=== PATIENT | male | born 1975 | race African-American/Black ===

== ENCOUNTER → 2016-05-28 | Emergency (ER) | payer BC, OTHER ==
[~2016-05-28] VITALS: Ht 198.1 cm; Wt 142.9 kg
[~2016-05-28] MED LIST: LOSARTAN POTASS25 MG ORAL; METOPROLOL5 MG/5 M1 IV; OCUFLOX5 ML OPHTHALM
[2016-05-28 17:05] VITALS: BP 91/62
[2016-05-28 17:27] VITALS: BP 91/62
--- NOTE | 2016-05-28 17:54 | Emergency Room Report ---
History of Present Illness General Chief Complaint: Eye Problems Source: Patient Present Illness HPI The patient is a 40-year-old male presenting for left eye discharge and redness which began 2 days prior. The patient states that he woke with his eye crusted shut. The patient describes the discharge as white to yellow and thick. The patient does admit to mild itchiness as well. The patient denies any pain and denies photophobia, pain, headache, dizziness, blurred vision, N, V, F. The patient denies any sick contacts Allergies: Coded Allergies: No Known Allergies (Unverified , 05/28/16) Patient History Past Medical History: see triage record Pertinent Family History: none Reviewed Nursing Documentation: PMH: Agreed, PSxH: Agreed Nursing Documentation-PMH Past Medical History: No History, Except For Hx Hypertension: Yes Review of Systems All Other Systems: negative except mentioned in HPI Physical Exam Vital Signs Date Time Temp Pulse Resp B/P Pulse Ox O2 Delivery O2 Flow Rate FiO2 05/28/16 16:58 98.2 68 20 91/62 100 Room Air Sp02 EP Interpretation: reviewed, normal General Appearance: no apparent distress, alert, GCS 15, non-toxic Head: normocephalic, atraumatic Eyes: right eye normal inspection, left eye Scleral Injection, left eye other - thick white DC, bilateral eye EOMI, bilateral eye PERRL ENT: hearing grossly normal, normal pharynx, no angioedema, normal voice Neck: full range of motion, supple/symm/no masses Respiratory: chest non-tender, lungs clear, normal breath sounds, speaking full sentences Cardiovascular #1: regular rate, rhythm, no edema Gastrointestinal: non-distended, no guarding Neurologic: alert, oriented x3, responsive, motor strength/tone normal, sensory intact, normal gait, speech normal Psychiatric: judgement/insight normal, memory normal, mood/affect normal, no suicidal/homicidal ideation Skin: normal color, no rash, warm/dry, well hydrated Lymphatic: no adenopathy Medical Decision Making PA Attestation Dr. Vasquez is my supervising physician. Patient management was discussed with my supervising physician Diagnostic Impression: Primary Impression: Bacterial conjunctivitis of left eye ER Course The patient is a 40-year-old male presenting for left eye discharge and redness which began 2 days prior. Differential diagnoses considered but not limited to allergic conjunctivitis, bacterial conjunctivitis, viral conjunctivitis, blepharitis, hordeolum PE: vitals WNL. NAD L eye: injection. + Thick white DC. PERRL. EOMI. The patient will be discharged home with a prescription for ofloxacin and will FU with PMD Last Vital Signs Date Time Temp Pulse Resp B/P Pulse Ox O2 Delivery O2 Flow Rate FiO2 05/28/16 17:27 98.2 68 20 91/62 100 Room Air Status: improved Disposition: HOME, SELF-CARE Condition: Improved Scripts Ofloxacin (OCUFLOX) 5 Ml Drops 1 DRP OPHTHALM Q4HR for 7 Days, ML Prov: LEONARD RIOS 05/28/16 Referrals: DON SORENSON ,REFERRING (PCP) Patient Instructions: Bacterial Conjunctivitis Additional Instructions: I discussed my findings with the patient. All questions and concerns have been answered. Treatment and medication compliance have been addressed. I advised the patient that they need to follow up with PMD in 3-5 days. Return to ED if symptoms worsen, new symptoms arise, or if needed for any reason. Patient verbalized understanding of discharge instructions. LEONARD RIOS May 28, 2016 17:54
== END | disposition home or self-care (01) ==
LOC: EMR 17:15
DX: H10.9 Unspecified conjunctivitis (principal); I10 Essential (primary) hypertension
CPT/HCPCS: 99282

== ENCOUNTER 2017-01-24 16:58 | Emergency (ER) | payer OTHER ==
[~2017-01-24] VITALS: Ht 198.1 cm; Wt 145.1 kg
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
[2017-01-24 17:58] VITALS: BP 167/118
[2017-01-24] MEDS ORDERED: ROBAXIN-750750 MG PO (18:05)
[2017-01-24] MEDS ORDERED: IBUPROFEN600 MG ORAL (18:05)
[2017-01-24 18:12] VITALS: BP 167/118
--- NOTE | 2017-01-25 09:45 | Diagnostic Imaging Report ---
Indication: PAIN Technique: 2 views of the left tibia and fibula Comparison: none Findings: No acute fractures. No dislocations. No radiopaque foreign body Impression: Negative
--- NOTE | 2017-01-25 09:46 | Diagnostic Imaging Report ---
Indication: PAIN Technique: 3 views of the right knee Comparison: None Findings:No acute fractures. No dislocations. There are minimal degenerative changes. 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
== END 2017-01-24 18:15 | disposition home or self-care (01) ==
LOC: EMR 17:31
DX: S80.12XA Contusion of left lower leg, initial encounter (principal); S80.02XA Contusion of left knee, initial encounter; S00.03XA Contusion of scalp, initial encounter; S80.01XA Contusion of right knee, initial encounter; M54.2 Cervicalgia; M79.606 Pain in leg, unspecified; V49.9XXA Car occupant (driver) (passenger) injured in unspecified traffic accident, initial encounter; Y93.9 Activity, unspecified; Y99.9 Unspecified external cause status
CPT/HCPCS: 99284

== ENCOUNTER 2017-03-25 22:03 | Emergency (ER) | payer OTHER ==
[~2017-03-25] VITALS: Ht 198.1 cm; Wt 142.9 kg
[~2017-03-25 22:03] MED LIST changes: +IBUPROFEN600 MG ORAL; +ROBAXIN-750750 MG PO
[2017-03-25] MEDS ORDERED: AUGMENTIN 875-1 EAC1 ORAL (22:29)
[2017-03-25] MEDS ORDERED: ALBUTEROL SULF8.5 GM INH (22:29)
[2017-03-25 22:36] VITALS: BP 164/113
[2017-03-25 22:37] VITALS: BP 164/113
--- NOTE | 2017-03-25 23:37 | Emergency Room Report ---
History of Present Illness General Chief Complaint: Flu Like Symptoms Source: Patient Present Illness HPI Patient presents with complaints of sore throat Cough He reports that he has used several cough syrup without significant improvement Denies any headache or visual changes Patient also has a nasal congestion Symptoms ongoing for the past 2 weeks denies any vomiting or diarrhea denies any rash denies any neck pain or photophobia denies any recent travel sore throat is 4/ 10 worse with swallowing Allergies: Coded Allergies: No Known Allergies (Unverified , 05/28/16) Patient History Past Medical History: see triage record Pertinent Family History: none Reviewed Nursing Documentation: PMH: Agreed, PSxH: Agreed Nursing Documentation-PMH Past Medical History: No History, Except For Hx Hypertension: Yes Review of Systems All Other Systems: negative except mentioned in HPI Physical Exam Vital Signs Date Time Temp Pulse Resp B/P (MAP) Pulse Ox O2 Delivery O2 Flow Rate FiO2 03/25/17 22:10 98.2 88 18 202/139 98 Room Air Sp02 EP Interpretation: reviewed, normal General Appearance: well appearing, no apparent distress Head: normocephalic, atraumatic ENT: pharyngeal erythema Neck: full range of motion, supple Respiratory: chest non-tender, lungs clear Cardiovascular #1: normal peripheral pulses, regular rate, rhythm Gastrointestinal: non tender, soft Musculoskeletal: normal inspection Neurologic: normal inspection, alert Skin: normal color, no rash Lymphatic: no adenopathy Medical Decision Making Diagnostic Impression: Primary Impression: pharyngitis ER Course Patient's repeat blood pressure is significantly different than the initial vision has poorly controlled hypertension as well He requires close outpatient reevaluation for that With regards to the clinical complaints today Appears to have findings in line with pharyngitis Is placed on oral antibiotics and will have initial conservative outpatient followup Last Vital Signs Date Time Temp Pulse Resp B/P (MAP) Pulse Ox O2 Delivery O2 Flow Rate FiO2 03/25/17 22:37 98.2 88 18 164/113 98 Room Air Status: improved Disposition: HOME, SELF-CARE Condition: Stable Scripts Albuterol Sulfate* (ALBUTEROL SULFATE MDI*) 8.5 Gm Hfa.aer.ad 2 PUFF INH Q6H, #1 EA 0 Refills Prov: ALEJANDRA MEMBRENO D.O. 03/25/17 Amoxicillin/Potassium Clav 875-125* (AUGMENTIN 875-125 TABLET*) 1 Each Tablet 1 TAB ORAL TWICE A DAY, #14 TAB Prov: ALEJANDRA MEMBRENO D.O. 03/25/17 Referrals: ASHLEY SALDANA GRP,REFERRING (PCP) Patient Instructions: Pharyngitis, [id number] Additional Instructions: Patient is provided with the discharge instructions notified to follow up with primary doctor in the next 2-3 days otherwise return to the er with any worsening symptoms. Please note that this report is being documented using Pel[employer] technology. This can lead to erroneous entry secondary to incorrect interpretation by the dictating instrument. ALEJANDRA MEMBRENO D.O. Mar 25, 2017 23:37
== END 2017-03-25 22:38 | disposition home or self-care (01) ==
LOC: EMR 22:23
DX: J02.9 Acute pharyngitis, unspecified (principal); I10 Essential (primary) hypertension
CPT/HCPCS: 99284

== ENCOUNTER 2017-04-24 14:54 | Emergency (ER) | payer OTHER ==
[~2017-04-24] VITALS: Ht 198.1 cm; Wt 152.0 kg
[~2017-04-24 14:54] MED LIST changes: +ALBUTEROL SULF8.5 GM INH; +AUGMENTIN 875-1 EAC1 ORAL
[2017-04-24] MEDS ORDERED: METOPROLOL TAR100 M1 ORAL (15:06)
[2017-04-24] MEDS ORDERED: ALBUTEROL SULF8.5 GM INH (16:11)
[2017-04-24] MEDS ORDERED: LEVAQUIN750 MG ORAL (16:11)
[2017-04-24] MEDS ORDERED: PROMETHAZINE-C118 M1 ORAL (16:11)
[2017-04-24] MEDS ORDERED: PREDNISONE20 MG ORAL (16:11)
[2017-04-24 16:23] VITALS: BP 166/99
--- NOTE | 2017-04-24 17:06 | Diagnostic Imaging Report ---
Indication: Reason For Exam: COUGH Technique: One view of the chest Comparison: Findings: Lungs and pleural spaces are clear. Heart size is normal Impression: No acute process
--- NOTE | 2017-04-24 19:02 | Emergency Room Report ---
History of Present Illness General Chief Complaint: Flu Like Symptoms Source: Patient Present Illness HPI 41-year-old male presents to ED for evaluation. States the last 5 weeks he's been having a productive cough and bodyaches. Patient has yellow sputum. No fevers or chills. Denies chest pain. Denies shortness of breath. Denies sick contacts or recent travel. Denies sore throat or earache. No other aggravating or leading factors. Denies any other associated symptoms Allergies: Coded Allergies: No Known Allergies (Unverified , 05/28/16) Patient History Past Medical History: HTN Past Surgical History: none Pertinent Family History: none Social History: Denies: smoking, alcohol use, drug use Immunizations: UTD Reviewed Nursing Documentation: PMH: Agreed, PSxH: Agreed Nursing Documentation-PMH Past Medical History: No History, Except For Hx Cardiac Problems: No Hx Hypertension: Yes Hx Pacemaker: No Hx Asthma: No Hx COPD: No Hx Diabetes: No Hx Cancer: No Hx Gastrointestinal Problems: No Hx Dialysis: No History Of Psychiatric Problem: No Hx Neurological Problems: No Hx Cerebrovascular Accident: No Hx Seizures: No Review of Systems All Other Systems: negative except mentioned in HPI Physical Exam Vital Signs Date Time Temp Pulse Resp B/P (MAP) Pulse Ox O2 Delivery O2 Flow Rate FiO2 04/24/17 14:59 102.4 93 16 175/100 99 Room Air Sp02 EP Interpretation: reviewed, normal General Appearance: no apparent distress, alert, GCS 15, non-toxic Head: normocephalic, atraumatic Eyes: bilateral eye normal inspection, bilateral eye PERRL ENT: hearing grossly normal, normal pharynx, no angioedema, normal voice Neck: full range of motion, supple/symm/no masses Respiratory: chest non-tender, lungs clear, normal breath sounds, speaking full sentences Cardiovascular #1: regular rate, rhythm, no edema Cardiovascular #2: 2+ carotid (R), 2+ carotid (L), 2+ radial (R), 2+ radial (L) , 2+ dorsalis pedis (R), 2+ dorsalis pedis (L) Gastrointestinal: normal bowel sounds, non tender, soft, non-distended, no guarding, no rebound Rectal: deferred Genitourinary: normal inspection, no CVA tenderness Musculoskeletal: back normal, gait/station normal, normal range of motion, non- tender Neurologic: alert, oriented x3, responsive, motor strength/tone normal, sensory intact, speech normal Psychiatric: judgement/insight normal, memory normal, mood/affect normal, no suicidal/homicidal ideation Reflexes: 3+ bicep (R), 3+ bicep (L), 3+ tricep (R), 3+ tricep (L), 3+ knee (R) , 3+ knee (L) Skin: normal color, no rash, warm/dry, well hydrated Lymphatic: no adenopathy Medical Decision Making Diagnostic Impression: Primary Impression: Atypical pneumonia ER Course Hospital Course 41-year-old male presents to ED complaining of productive cough Differential diagnoses include: URI, pharyngitis, otitis media, asthma Clinical course Patient placed on stretcher. After initial history, physical exam reveals a male in no acute distress. Bilateral TM unremarkable. No pharyngeal erythema. No tonsillar exudates. No lymphadenopathy. lungs clear. abdomen soft. Chest x-ray shows no evidence of acute infiltrate. Given persistence of symptoms we will treat his atypical pneumonia Diagnosis - atypical pneumonia Stable and discharged home with Rx Leavquin, prednisone, promethazine/codeine, albuterol. Instructed to followup with PMD. Return to ED if symptoms recur or worsen Chest X-Ray Diagnostic Results Chest X-Ray Diagnostic Results : Chest X-Ray Ordered: Yes # of Views/Limited/Complete: 1 View Indication: Other - cough EP Interpretation: Yes Interpretation: no consolidation, no effusion, no pneumothorax, no acute cardiopulmonary disease Impression: No acute disease Electronically Signed by: Electronically signed by Georges Vasquez MD Last Vital Signs Date Time Temp Pulse Resp B/P (MAP) Pulse Ox O2 Delivery O2 Flow Rate FiO2 04/24/17 16:23 102.4 108 18 166/99 100 Room Air Status: improved Disposition: HOME, SELF-CARE Condition: Stable Scripts Codeine/Promethazine Hcl* (PROMETHAZINE-CODEINE SYRUP*) 118 Ml Syrup 5 ML ORAL Q6H Y for For Cough, #118 ML 0 Refills Prov: GEORGES VASQUEZ M.D. 04/24/17 Levofloxacin* (LEVAQUIN*) 750 Mg Tablet 750 MG ORAL DAILY for 5 Days, TAB Prov: GEORGES VASQUEZ M.D. 04/24/17 Prednisone* (PREDNISONE*) 20 Mg Tablet 40 MG ORAL DAILY, #10 TAB Prov: GEORGES VASQUEZ M.D. 04/24/17 Albuterol Sulfate* (ALBUTEROL SULFATE MDI*) 8.5 Gm Hfa.aer.ad 2 PUFF INH Q6H, #1 EA 0 Refills Prov: GEORGES VASQUEZ M.D. 04/24/17 Referrals: [facility] ELOISE,REFERRING (PCP) Patient Instructions: Community-Acquired Pneumonia, Adult, [id number] GEORGES VASQUEZ M.D. Apr 24, 2017 19:02
== END 2017-04-24 16:23 | disposition home or self-care (01) ==
LOC: EMR 15:15
DX: J18.9 Pneumonia, unspecified organism (principal); I10 Essential (primary) hypertension
CPT/HCPCS: 71010; 99284

== ENCOUNTER 2017-08-07 08:26 | Inpatient (IN) | payer BC, OTHER ==
[~2017-08-07] VITALS: Ht 198.1 cm; Wt 149.2 kg
[2017-08-07] VITALS (10 sets, daily range): BP systolic 134–200; BP diastolic 91–125
[~2017-08-07 08:26] MED LIST changes: +LEVAQUIN750 MG ORAL; +METOPROLOL TAR100 M1 ORAL; +PREDNISONE20 MG ORAL; +PROMETHAZINE-C118 M1 ORAL
[2017-08-07] MEDS ORDERED: HYDROCHLOROTHIA25 MG ORAL (09:11)
[2017-08-07] MEDS ORDERED: HYDRALAZINE HCL10 MG ORAL (09:11)
[2017-08-07] MEDS ORDERED: LOSARTAN POTASS50 MG ORAL (09:11)
[2017-08-07] MEDS ORDERED: Enalaprilat 2.5mg/2ml Inj IV ONE (09:30)
--- NOTE | 2017-08-07 09:30 | Emergency Room Report ---
History of Present Illness General Chief Complaint: Hypertension Source: Patient Present Illness HPI 42-year-old male presents ED for evaluation. Patient complaining of headache. Per triage blood pressure high. Patient states he takes multiple high blood pressure meds patient states he ran out of his Cozaar one week ago. Systolic blood pressure greater than 200. Denies chest pain or shortness of breath. Notes throbbing headache, frontal, 8 out of 10, nonradiating. Denies neck stiffness. Denies photophobia. Denies nausea or vomiting. No other aggravating relieving factors. Denies any other associated symptoms Allergies: Coded Allergies: No Known Allergies (Unverified , 05/28/16) Patient History Past Medical History: HTN Past Surgical History: none Pertinent Family History: none Social History: Denies: smoking, alcohol use, drug use Immunizations: UTD Reviewed Nursing Documentation: PMH: Agreed; PSxH: Agreed Nursing Documentation-PMH Past Medical History: No History, Except For Hx Cardiac Problems: No Hx Hypertension: Yes Hx Pacemaker: No Hx Asthma: No Hx COPD: No Hx Diabetes: No Hx Cancer: No Hx Gastrointestinal Problems: No Hx Dialysis: No Hx Neurological Problems: No Hx Cerebrovascular Accident: No Hx Seizures: No Review of Systems All Other Systems: negative except mentioned in HPI Physical Exam Vital Signs Date Time Temp Pulse Resp B/P (MAP) Pulse Ox O2 Delivery O2 Flow Rate FiO2 08/07/17 08:39 97.2 73 18 200/124 98 Room Air 97.2 Sp02 EP Interpretation: reviewed, normal General Appearance: no apparent distress, alert, GCS 15, non-toxic Head: normocephalic, atraumatic Eyes: bilateral eye normal inspection, bilateral eye PERRL ENT: hearing grossly normal, normal pharynx, no angioedema, normal voice Neck: full range of motion, no meningismus, supple/symm/no masses Respiratory: chest non-tender, lungs clear, normal breath sounds, speaking full sentences Cardiovascular #1: regular rate, rhythm, no edema Cardiovascular #2: 2+ carotid (R), 2+ carotid (L), 2+ radial (R), 2+ radial (L) , 2+ dorsalis pedis (R), 2+ dorsalis pedis (L) Gastrointestinal: normal bowel sounds, non tender, soft, non-distended, no guarding, no rebound Rectal: deferred Genitourinary: normal inspection, no CVA tenderness Musculoskeletal: back normal, gait/station normal, normal range of motion, non- tender Neurologic: alert, oriented x3, responsive, motor strength/tone normal, sensory intact, speech normal Psychiatric: judgement/insight normal, memory normal, mood/affect normal, no suicidal/homicidal ideation Reflexes: 3+ bicep (R), 3+ bicep (L), 3+ tricep (R), 3+ tricep (L), 3+ knee (R) , 3+ knee (L) Skin: normal color, no rash, warm/dry, well hydrated Lymphatic: no adenopathy Medical Decision Making Diagnostic Impression: Primary Impression: Hypertensive urgency ER Course Hospital Course 42 yo M presents to ED c/o headache, BP high. ran out of his meds Differential diagnoses include: AL/unstable angina, CVA/TIA, hypertensive urgency Clinical course Patient placed on stretcher. on geodesist. After initial history and physical I ordered labs, EKG, chest x-ray, CT Head. hydralazine. labs reviewed- no leukocytosis, hemoglobin/hematocrit stable, electrolytes okay , troponins negative. EKG - NSR, no acute ischemic changes interpreted by me Chest x-ray- unremarkable CT head negative Patient required multiple rounds of BP meds to get BP under control. Case discussed with Dr. Morocho (as per insurance) and he agreed to accept the patient to his service for further care and support I. I feel this is a highly complex case requiring extensive working including EKG/Rhythm strip, Xray/CT/US, Blood/urine lab work, repeat exams while in ED, and administration of strong opiates/narcotics for pain control, admission to hospital or close patient follow up. Diagnosis - hypertensive urgency admitted to telemetry in serious condition Labs Test 08/07/17 09:00 08/07/17 10:30 White Blood Count 4.0 K/UL (4.8-10.8) Red Blood Count 5.74 M/UL (4.70-6.10) Hemoglobin 15.2 G/DL (14.2-18.0) Hematocrit 47.2 % (42.0-52.0) Mean Corpuscular Volume 82 FL (80-99) Mean Corpuscular Hemoglobin 26.4 PG (27.0-31.0) Mean Corpuscular Hemoglobin Concent 32.1 G/DL (32.0-36.0) Red Cell Distribution Width 12.5 % (11.6-14.8) Platelet Count 223 K/UL (150-450) Mean Platelet Volume 9.1 FL (6.5-10.1) Neutrophils (%) (Auto) 56.5 % (45.0-75.0) Lymphocytes (%) (Auto) 31.0 % (20.0-45.0) Monocytes (%) (Auto) 6.5 % (1.0-10.0) Eosinophils (%) (Auto) 4.1 % (0.0-3.0) Basophils (%) (Auto) 1.9 % (0.0-2.0) Sodium Level 136 MMOL/L (136-145) Potassium Level 3.5 MMOL/L (3.5-5.1) Chloride Level 99 MMOL/L (98-107) Carbon Dioxide Level 32 MMOL/L (21-32) Anion Gap 5 mmol/L (5-15) Blood Urea Nitrogen 14 mg/dL (7-18) Creatinine 1.3 MG/DL (0.55-1.30) Estimat Glomerular Filtration Rate > 60 mL/min (>60) Glucose Level 106 MG/DL (74-106) Calcium Level 8.9 MG/DL (8.5-10.1) Total Bilirubin 0.8 MG/DL (0.2-1.0) Aspartate Amino Transf (AST/SGOT) 22 U/L (15-37) Alanine Aminotransferase (ALT/SGPT) 31 U/L (12-78) Alkaline Phosphatase 111 U/L (46-116) Total Creatine Kinase 153 U/L (26-308) Creatine Kinase MB 1.1 NG/ML (0.0-3.6) Creatine Kinase MB Relative Index 0.7 Troponin I 0.000 ng/mL (0.000-0.056) Total Protein 8.3 G/DL (6.4-8.2) Albumin 3.9 G/DL (3.4-5.0) Globulin 4.4 g/dL Albumin/Globulin Ratio 0.9 (1.0-2.7) Urine Opiates Screen Negative (NEGATIVE) Urine Barbiturates Screen Negative (NEGATIVE) Phencyclidine (PCP) Screen Negative (NEGATIVE) Urine Amphetamines Screen Negative (NEGATIVE) Urine Benzodiazepines Screen Negative (NEGATIVE) Urine Cocaine Screen Negative (NEGATIVE) Urine Marijuana (THC) Screen Negative (NEGATIVE) EKG Diagnostic Results Rate: normal Rhythm: NSR ST Segments: no acute changes ASA given to the pt in ED: No Rhythm Strip Diag. Results EP Interpretation: yes Rhythm: NSR, no PVC's, no ectopy CT/MRI/US Diagnostic Results CT/MRI/US Diagnostic Results : Imaging Test Ordered: CT Head Last Vital Signs Date Time Temp Pulse Resp B/P (MAP) Pulse Ox O2 Delivery O2 Flow Rate FiO2 08/07/17 09:27 186/122 08/07/17 08:48 97.2 73 18 98 Room Air 97.2 Status: improved Disposition: ADMITTED INPATIENT Condition: Serious Georges Vasquez MD Aug 07, 2017 09:30
--- NOTE | 2017-08-07 09:34 | Diagnostic Imaging Report ---
Indication: Headache Technique: Contiguous 5 mm thick transaxial imaging of the head obtained in a Siemens Sensation [address] scanner. Soft tissue and bone windows generated. Automatic Exposure Control was utilized. Total Dose length Product (DLP): 1513.[address] Dose Index Volume (CTDIvol): 70.38 mGy Comparison: none Findings: The size and configuration of the cortical sulci, basal cisterns, and ventricles are within normal limits for age. There is no mass effect, midline shift, or edema identified. There is no evidence of acute hemorrhage or abnormal intra-axial or extra-axial fluid collections. The bones and soft tissues are unremarkable. There is opacification of the left maxillary sinus consistent with sinusitis Impression: No mass effect, edema or acute bleed. Left maxillary sinusitis. Please correlate clinically The CT scanner at [facility] is accredited by the [employer] and the scans are performed using dose optimization techniques as appropriate to a performed exam including Automatic Exposure control.
[2017-08-07 09:46] LABS: BASOPHILS % (AUTO) 1.9 % (0.0-2.0); EOSINOPHILS % (AUTO) 4.1 % (0.0-3.0); HEMATOCRIT 47.2 % (42.0-52.0); HEMOGLOBIN 15.2 G/DL (14.2-18.0); MEAN CORPUSCULAR VOLUME 82 FL (80-99); MONOCYTES % (AUTO) 6.5 % (1.0-10.0); NEUTROPHILS % (AUTO) 56.5 % (45.0-75.0); PLATELET COUNT 223 K/UL (150-450); RED BLOOD COUNT 5.74 M/UL (4.70-6.10); RED CELL DISTRIBUTION WIDTH 12.5 % (11.6-14.8)
[2017-08-07 09:48] LABS: ANION GAP 5 mmol/L (5-15); BLOOD UREA NITROGEN 14 mg/dL (7-18); CALCIUM 8.9 MG/DL (8.5-10.1); CARBON DIOXIDE 32 MMOL/L (21-32); CHLORIDE 99 MMOL/L (98-107); CREATININE 1.3 MG/DL (0.55-1.30); POTASSIUM 3.5 MMOL/L (3.5-5.1); SODIUM 136 MMOL/L (136-145)
--- NOTE | 2017-08-07 09:57 | Diagnostic Imaging Report ---
Indication: Cough Comparison: 04/24/2017 A single view chest radiograph was obtained. Findings: Cardiomediastinal appearance is within normal limits for age. Pulmonary vascularity is appropriate. The diaphragmatic contour is smooth and costophrenic angles are sharp. No pleural effusions are identified. The bones are unremarkable. Impression: No acute findings
[2017-08-07 10:03] LABS: ALANINE AMINOTRANSFERASE 31 U/L (12-78); ALBUMIN 3.9 G/DL (3.4-5.0); ALBUMIN/GLOBULIN RATIO 0.9 (1.0-2.7); ALKALINE PHOSPHATASE 111 U/L (46-116); ASPARTATE AMINO TRANSFERASE 22 U/L (15-37); BILIRUBIN,TOTAL 0.8 MG/DL (0.2-1.0); CKMB 1.1 NG/ML (0.0-3.6); CREATINE KINASE 153 U/L (26-308)
[2017-08-07] MEDS ORDERED: Ketorolac 30mg Inj IV ONE (10:30)
[2017-08-07] MEDS ORDERED: Sodium Chloride 500ML 500 ML IV ONE (10:30)
[2017-08-07] MEDS ORDERED: Metoclopramide 10mg/2ml Inj IVP ONE (10:30)
[2017-08-07] MEDS ORDERED: DiphenhydrAMINE 50mg/ml Inj IVP ONE (10:30)
[2017-08-07] MEDS ORDERED: cloNIDine 0.2mg Tab ORAL ONE (11:45)
--- NOTE | 2017-08-07 16:37 | History and Physical ---
History of Present Illness General Reason for Hospitalization: Hypertension Present Illness Allergies: Coded Allergies: No Known Allergies (Unverified , 05/28/16) Medication History Scheduled Hydralazine Hcl* (Hydralazine Hcl*), 10 MG ORAL BID, (Reported) Hydrochlorothiazide* (Hydrochlorothiazide*), 25 MG ORAL DAILY, (Reported) Losartan Potassium* (Losartan Potassium*), 100 MG ORAL DAILY, (Reported) Metoprolol Tartrate* (Metoprolol Tartrate*), 100 MG ORAL EVERY 12 HOURS, ( Reported) Discontinued Medications Albuterol Sulfate* (Albuterol Sulfate Mdi*), 2 PUFF INH Q6H Discontinued Reason: Pt stopped taking med Albuterol Sulfate* (Albuterol Sulfate Mdi*), 2 PUFF INH Q6H Discontinued Reason: Pt stopped taking med Amoxicillin/Potassium Clav 875-125* (Augmentin 875-125 Tablet*), 1 TAB ORAL TWICE A DAY Discontinued Reason: Pt stopped taking med Codeine/Promethazine Hcl* (Promethazine-Codeine Syrup*), 5 ML ORAL Q6H PRN for For Cough Discontinued Reason: Pt stopped taking med Ibuprofen* (Motrin*), 600 MG ORAL Q8H PRN for For Pain Discontinued Reason: Pt stopped taking med Levofloxacin* (Levaquin*), 750 MG ORAL DAILY Discontinued Reason: Pt stopped taking med Losartan Potassium* (Losartan Potassium*), 100 MG ORAL DAILY, (Reported) Discontinued Reason: Pt stopped taking med Methocarbamol* (Robaxin-750*), 750 MG PO TID Discontinued Reason: Pt stopped taking med Metoprolol Tartrate* (Metoprolol Tartrate*), Unknown Dose IV ONCE, (Reported) Discontinued Reason: Pt stopped taking med Ofloxacin (Ocuflox), 1 DRP OPHTHALM Q4HR Discontinued Reason: Pt stopped taking med Prednisone* (Prednisone*), 40 MG ORAL DAILY Discontinued Reason: Pt stopped taking med Patient History Healthcare decision maker Resuscitation status Advanced Directive on File Physical Exam Last 24 Hour Vital Signs Date Time Temp Pulse Resp B/P (MAP) Pulse Ox O2 Delivery O2 Flow Rate FiO2 08/07/17 15:48 76 16 159/103 98 Room Air 08/07/17 14:00 88 18 156/100 98 Room Air 08/07/17 13:00 72 18 162/99 98 Room Air 08/07/17 12:34 159/102 08/07/17 12:00 72 18 155/111 98 Room Air 08/07/17 11:00 70 18 176/115 98 Room Air 08/07/17 10:00 69 17 174/115 98 Room Air 08/07/17 10:00 168/125 08/07/17 09:30 73 18 168/125 98 Room Air 08/07/17 09:27 186/122 08/07/17 09:20 76 18 186/122 98 Room Air 08/07/17 08:48 97.2 73 18 200/124 98 Room Air 97.2 08/07/17 08:48 73 18 Room Air 08/07/17 08:39 97.2 73 18 200/124 98 Room Air 97.2 Laboratory Tests Test 08/07/17 09:00 08/07/17 10:30 White Blood Count 4.0 K/UL (4.8-10.8) L Red Blood Count 5.74 M/UL (4.70-6.10) Hemoglobin 15.2 G/DL (14.2-18.0) Hematocrit 47.2 % (42.0-52.0) Mean Corpuscular Volume 82 FL (80-99) Mean Corpuscular Hemoglobin 26.4 PG (27.0-31.0) L Mean Corpuscular Hemoglobin Concent 32.1 G/DL (32.0-36.0) Red Cell Distribution Width 12.5 % (11.6-14.8) Platelet Count 223 K/UL (150-450) Mean Platelet Volume 9.1 FL (6.5-10.1) Neutrophils (%) (Auto) 56.5 % (45.0-75.0) Lymphocytes (%) (Auto) 31.0 % (20.0-45.0) Monocytes (%) (Auto) 6.5 % (1.0-10.0) Eosinophils (%) (Auto) 4.1 % (0.0-3.0) H Basophils (%) (Auto) 1.9 % (0.0-2.0) Sodium Level 136 MMOL/L (136-145) Potassium Level 3.5 MMOL/L (3.5-5.1) Chloride Level 99 MMOL/L (98-107) Carbon Dioxide Level 32 MMOL/L (21-32) Anion Gap 5 mmol/L (5-15) Blood Urea Nitrogen 14 mg/dL (7-18) Creatinine 1.3 MG/DL (0.55-1.30) Estimat Glomerular Filtration Rate > 60 mL/min (>60) Glucose Level 106 MG/DL (74-106) Calcium Level 8.9 MG/DL (8.5-10.1) Total Bilirubin 0.8 MG/DL (0.2-1.0) Aspartate Amino Transf (AST/SGOT) 22 U/L (15-37) Alanine Aminotransferase (ALT/SGPT) 31 U/L (12-78) Alkaline Phosphatase 111 U/L (46-116) Total Creatine Kinase 153 U/L (26-308) Creatine Kinase MB 1.1 NG/ML (0.0-3.6) Creatine Kinase MB Relative Index 0.7 Troponin I 0.000 ng/mL (0.000-0.056) Total Protein 8.3 G/DL (6.4-8.2) H Albumin 3.9 G/DL (3.4-5.0) Globulin 4.4 g/dL Albumin/Globulin Ratio 0.9 (1.0-2.7) L Urine Opiates Screen Negative (NEGATIVE) Urine Barbiturates Screen Negative (NEGATIVE) Phencyclidine (PCP) Screen Negative (NEGATIVE) Urine Amphetamines Screen Negative (NEGATIVE) Urine Benzodiazepines Screen Negative (NEGATIVE) Urine Cocaine Screen Negative (NEGATIVE) Urine Marijuana (THC) Screen Negative (NEGATIVE) Height (Feet): 6 Height (Inches): 6.00 Weight (Pounds): 329 Medications Current Medications Medications (Trade) Dose Ordered Sig/Magdalena Route PRN Reason Start Time Stop Time Status Last Admin Dose Admin Hydralazine HCl (Apresoline) 10 mg BID ORAL 08/07/17 18:00 09/06/17 17:59 UNV Losartan Potassium (Cozaar) 100 mg DAILY ORAL 08/08/17 09:00 09/07/17 08:59 UNV Metoprolol Tartrate (Lopressor) 100 mg EVERY 12 HOURS ORAL 08/07/17 21:00 09/06/17 20:59 UNV Verito Morocho MD Aug 07, 2017 16:37
[2017-08-07] MEDS ORDERED: Labetalol 5mg/ml 20ml vial IV PRN (16:45)
[2017-08-07] MEDS ORDERED: dilTIAZem HCl 25mg/5ml Inj IV PRN (16:45)
[2017-08-07] MEDS ORDERED: Nitroglycerin Subl 0.4mg tab SL PRN (16:45)
[2017-08-07] MEDS ORDERED: Enalaprilat 2.5mg/2ml Inj IV PRN (16:45)
[2017-08-07] MEDS ORDERED: Miralax 17gm pkt ORAL PRN (16:45)
[2017-08-07] MEDS ORDERED: Albuterol/Ipratropium 3ml neb HHN PRN (16:45)
[2017-08-07] MEDS ORDERED: HydrALAZINE 10mg Tab ORAL SCH (18:00)
--- NOTE | 2017-08-07 18:09 | Cardiology Progress Note ---
Assessment/Plan Assessment/Plan htn poorly controlled obeisty hs otr mild abn sleep study ? lv systolici dysfunction has been htol "somthing in the mcgrath at 30% " dc losartan use lisinopril previously used Norvasc caused pain in the leg increase hydralzie to 75 tid in crease ase necessary may need clonidine addition sleep study ? renal artery dupelx not performed here echo [id number] Objective Last 24 Hour Vital Signs Date Time Temp Pulse Resp B/P (MAP) Pulse Ox O2 Delivery O2 Flow Rate FiO2 08/07/17 16:00 97.9 85 20 138/91 96 Room Air 97.9 08/07/17 16:00 81 08/07/17 15:48 76 16 159/103 98 Room Air 08/07/17 14:00 88 18 156/100 98 Room Air 08/07/17 13:00 72 18 162/99 98 Room Air 08/07/17 12:34 159/102 08/07/17 12:00 72 18 155/111 98 Room Air 08/07/17 11:00 70 18 176/115 98 Room Air 08/07/17 10:00 69 17 174/115 98 Room Air 08/07/17 10:00 168/125 08/07/17 09:30 73 18 168/125 98 Room Air 08/07/17 09:27 186/122 08/07/17 09:20 76 18 186/122 98 Room Air 08/07/17 08:48 97.2 73 18 200/124 98 Room Air 97.2 08/07/17 08:48 73 18 Room Air 08/07/17 08:39 97.2 73 18 200/124 98 Room Air 97.2 Laboratory Tests Test 08/07/17 09:00 08/07/17 10:30 08/07/17 17:10 White Blood Count 4.0 K/UL (4.8-10.8) L Red Blood Count 5.74 M/UL (4.70-6.10) Hemoglobin 15.2 G/DL (14.2-18.0) Hematocrit 47.2 % (42.0-52.0) Mean Corpuscular Volume 82 FL (80-99) Mean Corpuscular Hemoglobin 26.4 PG (27.0-31.0) L Mean Corpuscular Hemoglobin Concent 32.1 G/DL (32.0-36.0) Red Cell Distribution Width 12.5 % (11.6-14.8) Platelet Count 223 K/UL (150-450) Mean Platelet Volume 9.1 FL (6.5-10.1) Neutrophils (%) (Auto) 56.5 % (45.0-75.0) Lymphocytes (%) (Auto) 31.0 % (20.0-45.0) Monocytes (%) (Auto) 6.5 % (1.0-10.0) Eosinophils (%) (Auto) 4.1 % (0.0-3.0) H Basophils (%) (Auto) 1.9 % (0.0-2.0) Sodium Level 136 MMOL/L (136-145) Potassium Level 3.5 MMOL/L (3.5-5.1) Chloride Level 99 MMOL/L (98-107) Carbon Dioxide Level 32 MMOL/L (21-32) Anion Gap 5 mmol/L (5-15) Blood Urea Nitrogen 14 mg/dL (7-18) Creatinine 1.3 MG/DL (0.55-1.30) Estimat Glomerular Filtration Rate > 60 mL/min (>60) Glucose Level 106 MG/DL (74-106) Calcium Level 8.9 MG/DL (8.5-10.1) Total Bilirubin 0.8 MG/DL (0.2-1.0) Aspartate Amino Transf (AST/SGOT) 22 U/L (15-37) Alanine Aminotransferase (ALT/SGPT) 31 U/L (12-78) Alkaline Phosphatase 111 U/L (46-116) Total Creatine Kinase 153 U/L (26-308) Creatine Kinase MB 1.1 NG/ML (0.0-3.6) Creatine Kinase MB Relative Index 0.7 Troponin I 0.000 ng/mL (0.000-0.056) 0.001 ng/mL (0.000-0.056) Total Protein 8.3 G/DL (6.4-8.2) H Albumin 3.9 G/DL (3.4-5.0) Globulin 4.4 g/dL Albumin/Globulin Ratio 0.9 (1.0-2.7) L Urine Opiates Screen Negative (NEGATIVE) Urine Barbiturates Screen Negative (NEGATIVE) Phencyclidine (PCP) Screen Negative (NEGATIVE) Urine Amphetamines Screen Negative (NEGATIVE) Urine Benzodiazepines Screen Negative (NEGATIVE) Urine Cocaine Screen Negative (NEGATIVE) Urine Marijuana (THC) Screen Negative (NEGATIVE) SCOTT VARGAS Aug 07, 2017 18:09
[2017-08-07] MEDS: HydrALAZINE 50mg tab ORAL SCH (20:34)
[2017-08-07] MEDS: Heparin 5000 units/ml inj SUBQ SCH (20:37)
[2017-08-07] MEDS: Lisinopril 20mg tab ORAL SCH (22:02)
[2017-08-08] VITALS: BP 122/77
[2017-08-08 04:00] VITALS: BP 139/73
[2017-08-08] MEDS: HydrALAZINE 50mg tab ORAL SCH ×2 (06:00→14:04)
[2017-08-08 08:00] VITALS: BP 127/72
[2017-08-08] MEDS: Lisinopril 20mg tab ORAL SCH (08:19)
[2017-08-08] MEDS: Heparin 5000 units/ml inj SUBQ SCH (08:21)
[2017-08-08] MEDS ORDERED: Losartan 50mg tab ORAL SCH (09:00)
[2017-08-08 09:05] LABS: BASOPHILS % (AUTO) 1.1 % (0.0-2.0); EOSINOPHILS % (AUTO) 1.4 % (0.0-3.0); HEMOGLOBIN 14.6 G/DL (14.2-18.0); MEAN CORPUSCULAR VOLUME 82 FL (80-99); MONOCYTES % (AUTO) 6.2 % (1.0-10.0); NEUTROPHILS % (AUTO) 66.3 % (45.0-75.0); PLATELET COUNT 221 K/UL (150-450); RED BLOOD COUNT 5.48 M/UL (4.70-6.10); RED CELL DISTRIBUTION WIDTH 12.6 % (11.6-14.8); WHITE BLOOD COUNT 5.2 K/UL (4.8-10.8)
[2017-08-08 09:26] LABS: INR 0.9 (0.9-1.1)
[2017-08-08 09:52] LABS: ALANINE AMINOTRANSFERASE 32 U/L (12-78); ALBUMIN 3.6 G/DL (3.4-5.0); ALBUMIN/GLOBULIN RATIO 0.9 (1.0-2.7); ALKALINE PHOSPHATASE 100 U/L (46-116); ANION GAP 10 mmol/L (5-15); ASPARTATE AMINO TRANSFERASE 17 U/L (15-37); BLOOD UREA NITROGEN 17 mg/dL (7-18); CALCIUM 8.8 MG/DL (8.5-10.1); CARBON DIOXIDE 28 MMOL/L (21-32); CHLORIDE 98 MMOL/L (98-107); CHOLESTEROL 191 MG/DL (< 200); CREATININE 1.4 MG/DL (0.55-1.30); HDL CHOLESTEROL 30 MG/DL (40-60); POTASSIUM 3.3 MMOL/L (3.5-5.1); SODIUM 136 MMOL/L (136-145); TRIGLYCERIDES 218 MG/DL (30-150)
[2017-08-08 12:00] VITALS: BP 127/79
--- NOTE | 2017-08-08 12:47 | Cardiology Report ---
APPROVED REPORT EKG Measurement Heart [id number] Normal sinus rhythm Voltage criteria for left ventricular hypertrophy Nonspecific T wave abnormality Abnormal ECG
[2017-08-08 14:04] VITALS: BP 127/79
[2017-08-08] MEDS ORDERED: METOPROLOL TAR100 M1 ORAL (15:24)
[2017-08-08] MEDS ORDERED: LISINOPRIL20 MG ORAL (15:24)
[2017-08-08] MEDS ORDERED: DIURIL25 MG ORAL (15:25)
--- NOTE | 2017-08-08 15:29 | Pulmonology Progress Note ---
Assessment/Plan Problems: (1) Hypertensive urgency Assessment/Plan improving continue current BP meds Echo reviewe pt is asymptomatic Subjective ROS Limited/Unobtainable: No Constitutional: Reports: no symptoms HEENT: Repors: no symptoms Allergies: Coded Allergies: No Known Allergies (Unverified , 05/28/16) Objective Last 24 Hour Vital Signs Date Time Temp Pulse Resp B/P (MAP) Pulse Ox O2 Delivery O2 Flow Rate FiO2 08/08/17 14:04 127/79 08/08/17 12:00 98.1 75 21 127/79 95 Room Air 98.1 08/08/17 12:00 75 08/08/17 08:19 127/72 08/08/17 08:18 88 127/72 08/08/17 08:00 98.1 88 20 127/72 97 Room Air 98.1 08/08/17 08:00 93 08/08/17 07:47 87 18 Room Air 08/08/17 06:00 139/73 08/08/17 04:00 79 08/08/17 04:00 98.4 84 20 139/73 95 Room Air 98.4 08/08/17 00:00 91 08/08/17 00:00 97.7 86 20 122/77 96 Room Air 97.7 08/07/17 22:02 134/92 08/07/17 20:34 134/92 08/07/17 20:34 79 134/92 08/07/17 20:00 98.1 79 20 134/92 96 Room Air 98.1 08/07/17 18:25 138/91 08/07/17 16:00 97.9 85 20 138/91 96 Room Air 97.9 08/07/17 16:00 81 08/07/17 15:48 76 16 159/103 98 Room Air Intake and Output 08/07/17 08/08/17 19:00 07:00 Intake Total 900 ml Balance 900 ml Intake Oral 400 ml IV Total 500 ml # Voids 1 5 General Appearance: WD/WN HEENT: normocephalic, anicteric Respiratory/Chest: chest wall non-tender, lungs clear Cardiovascular: normal peripheral pulses, regular rhythm Abdomen: normal bowel sounds, soft, non tender Genitourinary: normal external genitalia Extremities: no clubbing Skin: no rash Laboratory Tests 08/07/17 17:10: Troponin I 0.001 08/08/17 07:10: Troponin I 0.000, White Blood Count 5.2, Red Blood Count 5.48, Hemoglobin 14.6, Hematocrit 45.0, Mean Corpuscular Volume 82, Mean Corpuscular Hemoglobin 26.6L, Mean Corpuscular Hemoglobin Concent 32.4, Red Cell Distribution Width 12.6, Platelet Count 221, Mean Platelet Volume 8.4, Neutrophils (%) (Auto) 66.3, Lymphocytes (%) (Auto) 25.0, Monocytes (%) (Auto) 6.2, Eosinophils (%) (Auto) 1.4, Basophils (%) (Auto) 1.1, Prothrombin Time 9.4, Prothromb Time International Ratio 0.9, Activated Partial Thromboplast Time 27, Sodium Level 136, Potassium Level 3.3L, Chloride Level 98, Carbon Dioxide Level 28, Anion Gap 10, Blood Urea Nitrogen 17, Creatinine 1.4H, Estimat Glomerular Filtration Rate > 60, Glucose Level 115H, Calcium Level 8.8, Total Bilirubin 1.0, Aspartate Amino Transf (AST/SGOT) 17, Alanine Aminotransferase (ALT/SGPT) 32, Alkaline Phosphatase 100, C-Reactive Protein, Quantitative < 0.4, Total Protein 7.7, Albumin 3.6, Globulin 4.1, Albumin/Globulin Ratio 0.9L, Triglycerides Level 218H, Cholesterol Level 191, LDL Cholesterol 123H, HDL Cholesterol 30L, Cholesterol/HDL Ratio 6.4H, Thyroid Stimulating Hormone (TSH) 1.369 Current Medications Medications (Trade) Dose Ordered Sig/Magdalena Route PRN Reason Start Time Stop Time Status Last Admin Dose Admin Acetaminophen (Tylenol) 650 mg Q4H PRN ORAL FEVER 08/07/17 16:45 09/06/17 16:44 08/08/17 06:06 Albuterol/ Ipratropium (Albuterol/ Ipratropium) 3 ml Q4H PRN HHN Shortness of Breath 08/07/17 16:45 08/12/17 16:44 Diltiazem HCl (Cardizem) 10 mg Q1H PRN IV HR > 120 08/07/17 16:45 09/06/17 16:44 Enalaprilat (Vasotec) 2.5 mg Q6H PRN IV sbp more than 160 08/07/17 16:45 09/06/17 16:44 Heparin Sodium (Porcine) (Heparin 5000 units/ml) 5,000 units EVERY 12 HOURS SUBQ 08/07/17 21:00 09/06/17 20:59 08/08/17 08:21 Hydralazine HCl (Apresoline) 100 mg Q8HR ORAL 08/07/17 20:00 09/06/17 19:59 08/08/17 14:04 Hydrochlorothiazide (Hydrodiuril) 25 mg DAILY ORAL 08/07/17 20:00 09/06/17 19:59 08/08/17 08:19 Labetalol HCl (Normodyne) 20 mg Q1H PRN IV sbp more than 160 08/07/17 16:45 09/06/17 16:44 Lisinopril (Prinivil) 40 mg DAILY ORAL 08/07/17 20:00 09/06/17 19:59 08/08/17 08:19 Metoprolol Tartrate (Lopressor) 100 mg EVERY 12 HOURS ORAL 08/07/17 21:00 09/06/17 20:59 08/08/17 08:18 Nitroglycerin (Ntg) 0.4 mg Q5MIN X 3 DOSES PRN SL Prn Chest Pain 08/07/17 16:45 09/06/17 16:44 Ondansetron HCl (Zofran) 4 mg Q6H PRN IVP Nausea & Vomiting 08/07/17 16:45 09/06/17 16:44 Pantoprazole (Protonix) 40 mg DAILY ORAL 08/08/17 09:00 09/07/17 08:59 08/08/17 08:18 Polyethylene Glycol (Miralax) 17 gm DAILYPRN PRN ORAL Constipation 08/07/17 16:45 09/06/17 16:44 Temazepam (Restoril) 15 mg HSPRN PRN ORAL Insomnia 08/07/17 16:45 08/14/17 16:44 Verito Morocho MD Aug 08, 2017 15:28
--- NOTE | 2017-08-09 08:15 | Consultation ---
DATE OF CONSULTATION: 08/07/2017 NOTE: POOR AUDIO CARDIOLOGY CONSULTATION CONSULTING PHYSICIAN: Kiel Heaton M.D. REFERRING PHYSICIAN: Verito Morocho M.D. REASON FOR REFERRAL: Hypertension, poorly controlled. HISTORY OF PRESENT ILLNESS: This is a middle-aged gentleman with history of hypertension for number of years, very poorly controlled apparently chronically. He ran out of his medications a week ago and was having pounding headache feeling, he does get some nausea with the headache and so decided to come into the hospital, blood pressure was significantly elevated, he is admitted to the hospital. He really does not have any chest pain or pressure. There is no PND, no orthopnea. No palpitation. The patient denies he uses one pillow. He is physically active at work with sledgehammers, walking up and down, and carrying things around and he never has to stop because of chest pains or shortness of breath. PAST MEDICAL HISTORY: Positive for high blood pressure. No diabetes. No cholesterol. No heart attack. No cancer. No stroke. No hepatitis or tuberculosis. No asthma or emphysema. No ulcers. No kidney problems, liver problems, thyroid problems, anemia, arthritis, HIV or AIDS, or blood clots. He does have a history of having had a sleep study that was mildly abnormal according to himself is part of his requirement for his job. He has been told that he may have something wrong with his heart of possibly an ejection fraction of 30%. SOCIAL HISTORY: He does not smoke. He does not drink alcoholic beverages. No drug use. 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 REVIEW OF SYSTEMS: GASTROINTESTINAL: There is some nausea as mentioned. No vomiting. No bloody or black stools. GENITOURINARY: Negative. PULMONARY: Negative. CONSTITUTIONAL: Negative. NEUROLOGICAL: Negative. PHYSICAL EXAMINATION: GENERAL: Shows him to be a tall, -[place] gentleman, in no respiratory distress. HEENT: Unremarkable. NECK: Supple. No jugular venous distention. LUNGS: Clear to auscultation and percussion. CARDIAC: S1 is normal. S2 is normal. Regular rate and rhythm. No heaves, thrills, gallops, or rubs noted. ABDOMEN: Soft and nontender. Positive bowel sounds. EXTREMITIES: No clubbing, cyanosis, or edema. NEUROLOGICAL: He is awake, alert, responsive, in no apparent respiratory distress. LABORATORY AND DIAGNOSTIC DATA: White count of 14, hemoglobin 15.2, and platelet count of 223. Sodium is 136, potassium 3.5, chloride 99, bicarbonate 32, BUN of 14, creatinine 1.2, glucose of 106, and calcium is 8.9. Alkaline phosphate is 111. Total protein is 8.3 and albumin of 3.9. Toxicology screen is negative. He did have a chest x-ray that was performed today that showed no acute findings. Pulmonary vasculature is appropriate. Diaphragmatic contour is smooth, and he did have a CT scan of his head because of his headache that presented that shows no mass effect, edema, or acute bleed. Active sinusitis is noted. ASSESSMENT AND PLAN: 1. Hypertension, poorly controlled. 2. Obesity and overweight. 3. Mild abnormal sleep study history. 4. Medication noncompliance. 5. Dietary indiscretion. 6. Questionable cardiac systolic dysfunction per patient's record. An echocardiogram needs to be performed to assure that he does not have any cardiomyopathy secondary to poorly controlled hypertension and so medication should be adjusted to that effect again. Dr. Morocho, this patient was seen in cardiac consultation. The need for low-sodium diet was fully discussed with the patient. He may benefit from repeating a sleep study to ensure he does not have any apnea that is contributing to his systemic hypertension. Renal artery duplex study can be performed, although this hospital does not perform that as outpatient and he may need to be considered for that. For the time being, his medications needs to be adjusted. He is already on hydralazine twice a day. The dose needs to be increased to possibly four times a day. His medications should be adjusted. His losartan is probably a poor medication for long-term blood pressure control. We will recommend lisinopril at least 40 mg as outpatient. He may use a different ARB such as Benicar or telmisartan that has a stronger activity. I have discussed with him the possible use of Norvasc, which he says prior usage caused him to have some pain in his knees and this was the reason why he was discontinued. I will follow the patient along with you. Kiel Heaton M.D. DR: EL JOB#: [id number] CC:
--- NOTE | 2017-08-09 10:24 | Discharge Summary ---
Discharge Summary Hospital Course Date of Admission Aug 07, 2017 at 11:40 Date of Discharge Aug 08, 2017 at 16:04 Admitting Diagnosis hypertensive urgency HPI Jason Muro is a 42 year old male who was admitted on Aug 07, 2017 at 11:40 for Hypertensive Urgency Hospital Course [id number] Discharge Discharge Disposition Patient was discharged to Home (01) Janice Jerez NP Aug 09, 2017 10:24
--- NOTE | 2017-08-09 21:00 | Discharge Summary 2 SIG ---
DATE OF ADMISSION: 08/07/2017 DATE OF DISCHARGE: 08/08/2017 RESEARCH TEST ENGINE OPERATOR: Kiel Heaton M.D. BRIEF HOSPITAL COURSE: The patient is a 42-year-old male, who presented to ED complaining of headache . Blood pressure was elevated. The patient takes multiple blood pressure medications at home and states that he ran out of his Cozaar a week prior. Systolic blood pressure had been greater than 200. He denied chest pain or shortness of breath. However, he has throbbing headache in the frontal area, 8/10, and nonradiating. He denied neck stiffness. He denied photophobia. He denied nausea or vomiting. On evaluation at ED, blood pressure was elevated to 200/124. Blood work was stable. Initial troponin was negative. He had an EKG that showed normal sinus rhythm with no acute ischemic changes. Head CT was likewise negative and chest x-ray was unremarkable. He required multiple rounds of enalapril to control blood pressure. He was then admitted for hypertensive urgency. He underwent cardiac evaluation with Dr. Heaton. He was given hydralazine. He was started on lisinopril 40 mg daily and metoprolol 100 mg b.i.d. Echocardiogram was done, however no official report at the time of dictation. He was placed on low sodium diet. Blood pressure improved to 120s/70s. He was eventually discharged home. FINAL DIAGNOSES: 1. Hypertensive urgency. 2. Hypertension, poorly controlled. 3. Obesity and overweight. 4. Mild abnormal sleep study history. 5. Medication noncompliance. 6. Questionable cardiac systolic dysfunction per patient's record. DISPOSITION: The patient was discharged home. DISCHARGE INSTRUCTIONS: The patient was advised that he may eventually need to undergo a sleep study to evaluate for apnea that may be contributing to his systemic hypertension. DISCHARGE MEDICATIONS: Hydrochlorothiazide 25 mg daily, lisinopril 40 mg daily, and metoprolol 100 mg b.i.d. Verito Morocho M.D. I have been assigned to dictate discharge summary on this account and I was not involved in the patient's management. Janice Jerez N.P. DR: DARCY JOB#: [id number] CC:
--- NOTE | 2017-08-10 18:08 | Cardiology Report ---
APPROVED REPORT EXAM: Two-dimensional and M-mode echocardiogram with Doppler and color Doppler. INDICATION LV FUNCTION M-Mode DIMENSIONS IVSd1.6 (0.7-1.1cm)Left Atrium (MM)4.0 (1.6-4.0cm) LVDd4.6 (3.5-5.6cm)Aortic Root4.0 (2.0-3.7cm) PWd1.6 (0.7-1.1cm)Aortic Cusp Exc.2.2 (1.5-2.0cm) IVSs2.3 cm LVDs3.0 (2.5-4.0cm) PWs1.9 cm Normal left ventricular chamber size, systolic function and wall motion. Left ventricular ejection fraction estimated to be 65-70 %. Mild left ventricular hypertrophy by 2-D. Trace posterior pericardial effusion. All other chamber sizes are within normal limits. Focal aortic valve sclerosis with adequate cusp excursion. Mildly Thickened mitral valve leaflets with normal excursion. Mildly Mitral annulus and aortic root calcification. Pulmonic valve not well visualized. Normal tricuspid valve structure. IVC at normal size with physiologic collapse. A color flow and spectral Doppler study was performed and revealed: No aortic insufficiency. Trace mitral regurgitation. Mitral diastolic velocities suggest reduced left ventricular relaxation c/w mild LV diastolic dysfunction (Grade I ). Trace tricuspid regurgitation. Tricuspid systolic velocities suggests peak right ventricular systolic pressure of 17 mmHg. No pulmonic regurgitation present .
== END 2017-08-08 16:04 | disposition home or self-care (01) | DRG 305 ==
LOC: EMR 09:35 → 2E 11:40 → EDBEDREQ 14:21 → 2E 15:55
DX: I16.0 Hypertensive urgency (principal); I10 Essential (primary) hypertension; E66.9 Obesity, unspecified; Z68.38 Body mass index [BMI] 38.0-38.9, adult; Z91.14 Patient's other noncompliance with medication regimen
CPT/HCPCS: 36415; 70450; 71045; 80053; 80061; 80307; 82550; 82553; 84443; 84484; 85025; 85610; 85730; 86140; 93005; 93306; 94664; 99285; J2765

== ENCOUNTER 2018-05-15 14:09 | Emergency (ER) | payer BC, OTHER ==
[~2018-05-15] VITALS: Ht 198.1 cm; Wt 145.1 kg
[~2018-05-15 14:09] MED LIST changes: +DIURIL25 MG ORAL; +HYDRALAZINE HCL10 MG ORAL; +HYDROCHLOROTHIA25 MG ORAL; +LISINOPRIL20 MG ORAL; +LOSARTAN POTASS50 MG ORAL
[2018-05-15 14:40] VITALS: BP 115/78
--- NOTE | 2018-05-15 14:40 | NUR ---
ED Nurse Note: pt walked into c/o flu like s/s for about three four days, cough and nasal congestion and byrne, with pressure, pt AA&ox4, gcs=15, skin warm and dry, resp even and unlabored, -n/v/d, ambulates w/ steady gait. will cont monitor. next to pt.
[2018-05-15] MEDS ORDERED: AMOXICILLIN500 MG ORAL (14:45)
[2018-05-15 15:00] VITALS: BP 118/78
--- NOTE | 2018-05-15 15:05 | NUR ---
ED Nurse Note: pt discharge instruction provided w/ prescription, pt education done via discussion and handout, pt advised to follow up w/ pcp 2-3days, pt verbalized understanding and agrees with plan, pt wrist band removed, pt ambulatory w/ steady gait, vss, all belongings left w/ pt.
--- NOTE | 2018-05-15 15:21 | Emergency Room Report ---
History of Present Illness General Chief Complaint: Flu Like Symptoms Source: Patient Present Illness Allergies: Coded Allergies: No Known Allergies (Unverified , 05/15/18) Patient History Past Medical History: pneumonia Past Surgical History: none Pertinent Family History: none Social History: Denies: smoking, alcohol use, drug use Reviewed Nursing Documentation: PMH: Agreed; PSxH: Agreed Nursing Documentation-PMH Past Medical History: No History, Except For Hx Cardiac Problems: No Hx Hypertension: Yes Hx Pacemaker: No Hx Asthma: No Hx COPD: No Hx Diabetes: No Hx Cancer: No Hx Gastrointestinal Problems: No Hx Dialysis: No Hx Neurological Problems: No Hx Cerebrovascular Accident: No Hx Seizures: No Review of Systems All Other Systems: negative except mentioned in HPI Physical Exam Vital Signs Date Time Temp Pulse Resp B/P (MAP) Pulse Ox O2 Delivery O2 Flow Rate FiO2 05/15/18 14:39 97.9 92 18 115/78 96 Room Air Sp02 EP Interpretation: reviewed, normal General Appearance: normal inspection, well appearing, no apparent distress, alert Head: atraumatic Eyes: bilateral eye normal inspection ENT: normal ENT inspection, hearing grossly normal, normal voice, other - Sinus tenderness to percussion Neck: normal inspection, full range of motion, supple, no bony tend Respiratory: normal inspection, lungs clear, normal breath sounds, no respiratory distress, no retraction, no wheezing Cardiovascular #1: regular rate, rhythm, no edema Gastrointestinal: normal inspection, normal bowel sounds, non tender, soft, no guarding, no hernia Genitourinary: no CVA tenderness Musculoskeletal: normal inspection, back normal, normal range of motion Neurologic: normal inspection, alert, responsive, speech normal Psychiatric: normal inspection, judgement/insight normal, mood/affect normal Skin: normal inspection, normal color, no rash Medical Decision Making Diagnostic Impression: Primary Impression: Cough ER Course Patient presents emergency department today complaining cough congestion and sinus pain. Differential considerations include pneumonia, bronchitis, sinusitis, viral syndrome. Patient's exam is consistent sinusitis. Given patient's history of pneumonia felt that was reasonable provide antibiotics. We 'll provide with patient with a prescription for amoxicillin.Patient is advised to follow up with primary doctor in 2-3 days and return the emergency room for any worsening symptoms and as needed. Last Vital Signs Date Time Temp Pulse Resp B/P (MAP) Pulse Ox O2 Delivery O2 Flow Rate FiO2 05/15/18 14:40 92 18 Room Air 05/15/18 14:40 97.9 115/78 96 Disposition: HOME, SELF-CARE Condition: Stable Scripts Amoxicillin* (AMOXIL*) 500 Mg Capsule 500 MG ORAL THREE TIMES A DAY, #30 CAP Prov: Ramon Vigil MD 05/15/18 Patient Instructions: Sinusitis, Adult, [id number] Ramon Vigil MD May 15, 2018 15:21
== END 2018-05-15 15:00 | disposition home or self-care (01) ==
LOC: EMR 15:00
DX: R05 Cough (principal); I10 Essential (primary) hypertension
CPT/HCPCS: 99282

== ENCOUNTER 2018-07-08 23:14 | Emergency (ER) | payer OTHER ==
[~2018-07-08] VITALS: Ht 198.1 cm; Wt 149.7 kg
[~2018-07-08 23:14] MED LIST changes: +AMOXICILLIN500 MG ORAL
[2018-07-08 23:20] VITALS: BP 138/85
--- NOTE | 2018-07-08 23:20 | NUR ---
ED Nurse Note: PT AMBULATED TO ED WITH C/O COUGH X2 WEEKS. RECENTLY SEEN IN [facility] [place] [employer] FOR SAME REASON; PRESCRIBED ANITIBIOTICS; COMPLIANT WITH MEDICATION REGIMEN; NO RELIEF. PT DENIES PAIN. WITH LUNGS CLEAR UPON AUSCULTATION. ERMD ON BEDSIDE. WILL CONTINUE TO MONITOR.
[2018-07-08 23:37] VITALS: BP 138/85
--- NOTE | 2018-07-08 23:37 | NUR ---
ER DISCHARGE NOTE: Patient is cleared to be discharged per ERMD, pt is aox4, on room air, with stable vital signs. pt was given dc and prescription instructions, pt was able to verbalize understanding, pt id band removed without complications. pt is able to ambulate with steady gait. pt took all belongings.
[2018-07-08] MEDS ORDERED: FLONASE ALLERG9.9 ML NS (23:45)
[2018-07-08] MEDS ORDERED: BACTRIM DS TAB1 EAC1 ORAL (23:45)
--- NOTE | 2018-07-08 23:46 | Emergency Room Report ---
History of Present Illness General Chief Complaint: Upper Respiratory Illness Source: Patient Present Illness HPI Is a 43-year-old male with history of high blood pressure. He presents with chief complaint of sinus congestion the last month. Was here last month for the same thing and was placed on antibiotics. He said he got limited better but after 2 weeks getting worse. No fever or chills. Blowing out greenish sputum. No nausea no vomiting. Nothing made it better. Nothing made it worse. Denies any other complaint. Allergies: Coded Allergies: No Known Allergies (Unverified , 05/15/18) Patient History Past Medical History: see triage record, old chart reviewed, HTN Past Surgical History: none Pertinent Family History: none Social History: Denies: smoking Immunizations: other Reviewed Nursing Documentation: PMH: Agreed; PSxH: Agreed Nursing Documentation-PMH Past Medical History: No History, Except For Hx Cardiac Problems: No Hx Hypertension: Yes Hx Pacemaker: No Hx Asthma: No Hx COPD: No Hx Diabetes: No Hx Cancer: No Hx Gastrointestinal Problems: No Hx Dialysis: No Hx Neurological Problems: No Hx Cerebrovascular Accident: No Hx Seizures: No Review of Systems Eye: Denies: eye pain, blurred vision ENT: Denies: ear pain, nose congestion, throat swelling Respiratory: Denies: cough, shortness of breath Cardiovascular: Denies: chest pain, palpitations Gastrointestinal: Denies: abdominal pain, diarrhea, nausea, vomiting Musculoskeletal: Denies: back pain, joint pain Skin: Denies: rash Neurological: Denies: headache, numbness Endocrine: Denies: increased thirst, increased urine Hematologic/Lymphatic: Denies: easy bruising All Other Systems: negative except mentioned in HPI Physical Exam Vital Signs Date Time Temp Pulse Resp B/P (MAP) Pulse Ox O2 Delivery O2 Flow Rate FiO2 07/08/18 23:14 100.8 105 24 138/85 96 Room Air vitals with fever Sp02 EP Interpretation: reviewed, normal General Appearance: well appearing, no apparent distress, alert Head: normocephalic, atraumatic Eyes: bilateral eye PERRL, bilateral eye EOMI ENT: hearing grossly normal, normal pharynx, other - Sinus tenderness Neck: full range of motion, supple, no meningismus Respiratory: chest non-tender, lungs clear, normal breath sounds Cardiovascular #1: regular rate, rhythm, no murmur Gastrointestinal: normal bowel sounds, non tender, no mass, no organomegaly, no bruit, non-distended Musculoskeletal: back normal, gait/station normal, normal range of motion Psychiatric: mood/affect normal Skin: warm/dry Medical Decision Making Diagnostic Impression: Primary Impression: Sinusitis, acute maxillary Qualified Codes: J01.00 - Acute maxillary sinusitis, unspecified ER Course Patient with acute sinusitis. We'll push antibiotics since this been a month. No evidence of meningitis or sepsis. We'll discharge home. Last Vital Signs Date Time Temp Pulse Resp B/P (MAP) Pulse Ox O2 Delivery O2 Flow Rate FiO2 07/08/18 23:37 99.0 105 24 138/85 96 Room Air Status: unchanged Disposition: HOME, SELF-CARE Condition: Stable Scripts Fluticasone Propionate (Flonase Allergy Relief) 9.9 Ml [place].susp 9.9 ML NS BID, #1 UNIT Prov: Sanchez Nj MD 07/08/18 Trimethoprim/Sulfamethoxazole 160/800* (BACTRIM DS TABLET*) 1 Each Tablet 1 TAB ORAL Q12H, #42 TAB 0 Refills Prov: Sanchez Nj MD 07/08/18 Additional Instructions: Follow-up with your doctor in 7 days. You may need a referral to see ENT doctor. Return if symptom worsen. Sanchez Nj MD Jul 08, 2018 23:46
== END 2018-07-08 23:55 | disposition home or self-care (01) ==
LOC: EMR 23:52
DX: J01.00 Acute maxillary sinusitis, unspecified (principal); I10 Essential (primary) hypertension
CPT/HCPCS: 99282

== ENCOUNTER 2019-06-10 20:40 | Emergency (ER) | payer BC, OTHER ==
[~2019-06-10] VITALS: Ht 182.9 cm; Wt 152.0 kg
[~2019-06-10 20:40] MED LIST changes: +BACTRIM DS TAB1 EAC1 ORAL; +FLONASE ALLERG9.9 ML NS
[2019-06-10] MEDS ORDERED: Albuterol ud Inhalation HHN ONE (21:15)
--- NOTE | 2019-06-10 21:16 | Emergency Room Report ---
History of Present Illness General Chief Complaint: Upper Respiratory Illness Source: Patient Present Illness HPI The patient switched his job on April 28. On May 06 he started having upper respiratory symptoms. Is got nasal congestion swelling of his eyes, discharge without fever. Occasional sore throat from coughing. 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 He started using Coreciden. He does have high blood pressure and therefore cannot take decongestants. He started these a week ago. They have been helping slightly. 10 years ago he used an inhaler. No fevers, chills, chest pain, palpitations, nausea, vomiting, diarrhea, dysuria , abdominal pain, joint pain, rashes, depression, anxiety, visual changes, dizziness, headache. 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 Reviewed Nursing Documentation: PMH: Agreed; PSxH: Agreed Nursing Documentation-PMH Hx Cardiac Problems: No Hx Hypertension: Yes Hx Pacemaker: No Hx Asthma: No Hx COPD: No Hx Diabetes: No Hx Cancer: No Hx Gastrointestinal Problems: No Hx Dialysis: No Hx Neurological Problems: No Hx Cerebrovascular Accident: No Hx Seizures: No Review of Systems All Other Systems: negative except mentioned in HPI Physical Exam Vital Signs Date Time Temp Pulse Resp B/P (MAP) Pulse Ox O2 Delivery O2 Flow Rate FiO2 06/10/19 20:51 98.4 85 19 137/88 (104) 94 Sp02 EP Interpretation: reviewed, normal General Appearance: well appearing, no apparent distress, GCS 15 Head: normocephalic Eyes: bilateral eye normal inspection, bilateral eye PERRL ENT: normal pharynx, TMs + canals normal, moist mucus membranes, nasal congestion Neck: full range of motion, supple Respiratory: chest non-tender, lungs clear, normal breath sounds, other - Posttussive wheezing Cardiovascular #1: regular rate, rhythm, no edema Cardiovascular #2: 2+ radial (R) Gastrointestinal: normal inspection Musculoskeletal: gait/station normal, no calf tenderness Neurologic: alert, normal inspection Psychiatric: mood/affect normal Skin: no rash, warm/dry Medical Decision Making Diagnostic Impression: Primary Impression: Allergic sinusitis Additional Impression: Bronchospasm ER Course Patient presents with upper respiratory symptoms for 1 month. This follows change in job pattern. Differential includes influenza, viral upper respiratory infection, allergic rhinitis, allergic sinusitis, bacterial sinusitis amongst others. The fact there is no fever suggest that this is not infectious. Based on history and exam the focus will be on symptom control. Concern over environmental exposures. Breathing treatment given here. Prednisone is given. Because of the history of hypertension we are somewhat limited in medications we can administer. Patient improved with breathing treatment. Discussed assessment and treatment plan. Discussed steroid nasal sprays and protection from environmental etiologies. Patient stable for outpatient observation and treatment. Last Vital Signs Date Time Temp Pulse Resp B/P (MAP) Pulse Ox O2 Delivery O2 Flow Rate FiO2 06/10/19 21:55 98.4 85 18 137/88 97 Room Air 21 Status: improved Disposition: HOME, SELF-CARE Condition: Improved Scripts Albuterol Sulfate* (ALBUTEROL SULFATE MDI*) 8.5 Gm Hfa.aer.ad 2 PUFF INH Q6H PRN for wheezing or cough, #1 EA 0 Refills Prov: Cliff Woodward MD 06/10/19 Dextromethorphan Hb/Doxylamine (Robitussin Nighttime Cough Dm) 237 Ml Liquid 5 ML PO Q6HR, #100 ML Prov: Cliff Woodward MD 06/10/19 Chlorpheniramine Maleate (CHLOR-TRIMETON) 4 Mg Tablet 4 MG PO Q6HR, #20 TAB Prov: Cliff Woodward MD 06/10/19 Prednisone* (PREDNISONE*) 20 Mg Tablet 20 MG ORAL DAILY, #5 TAB Prov: Cliff Woodward MD 06/10/19 Referrals: [facility],REFERRING (PCP) Cliff Woodward MD Jun 10, 2019 21:16
[2019-06-10] MEDS ORDERED: CHLOR-TRIMETON4 MG PO (21:19)
[2019-06-10] MEDS ORDERED: ALBUTEROL SULF8.5 GM INH (21:19)
[2019-06-10] MEDS ORDERED: ROBITUSSIN NIG237 M1 PO (21:19)
[2019-06-10] MEDS ORDERED: PREDNISONE20 MG ORAL (21:19)
--- NOTE | 2019-06-10 21:23 | NUR ---
ED Nurse Note: Pt ambulated to ED from home c/o cough [id number], productive pale yellow sputum, pain with cough, headache. Denies fever at home. PT has been taking sudaphed for HTN x4days without relief. VSS
[2019-06-10 21:29] VITALS: BP 137/88
[2019-06-10 21:55] VITALS: BP 137/88
--- NOTE | 2019-06-10 21:55 | NUR ---
ER DISCHARGE NOTE: Patient is cleared to be discharged per ERMD, pt is aox4, on room air, with stable vital signs. pt was given dc and prescription instructions, pt was able to verbalize understanding, pt id band removed. pt is able to ambulate with steady gait. pt took all belongings.
== END 2019-06-10 21:55 | disposition home or self-care (01) ==
LOC: EMR 21:13
DX: J30.9 Allergic rhinitis, unspecified (principal); J98.01 Acute bronchospasm; I10 Essential (primary) hypertension
CPT/HCPCS: 99284; J7512